=== PATIENT | female | born 1955 | race Caucasian/White ===

== ENCOUNTER 2017-03-27 23:31 | Emergency (ER) | payer MEDICARE, OTHER ==
[2017-03-28] MEDS ORDERED: NS 0.9% 1000 ML* 1,000 ML IV ONE (00:04)
[2017-03-28] MEDS ORDERED: Aspirin Low Dose CHEW TAB* 81 MG PO ONE (00:06)
[2017-03-28] MEDS ORDERED: Morphine INJ* 10 MG/ML 1 ML CARPUJECT IV ONE (00:07)
[2017-03-28] MEDS ORDERED: Ondansetron INJ* 2 MG/ML VIAL IV ONE (00:07)
[2017-03-28 00:42] LABS: INR 0.83 (0.77-1.02)
[2017-03-28 00:43] LABS: EGFR Non-African American 99.4 (>60)
[2017-03-28 00:55] LABS: ABS Basophils 0.1 10^3/ul (0-0.2); ABS Eosinophils 0.4 10^3/ul (0-0.6); ABS Lymphocytes 2.7 10^3/ul (1.0-4.8); ABS Monocytes 0.5 10^3/ul (0-0.8); ABS Neutrophils 2.8 10^3/ul (1.5-7.7); ABS Nucleated RBC 0 10^3/ul; Eosinophil % 5.5 % (0-6); Hematocrit 36 % (35-47); Hemoglobin 12.5 g/dl (12.0-16.0); Lymphocyte % 42.1 % (25-47); Mean Corpuscular HGB Conc 35 g/dl (31-36); Mean Corpuscular Hemoglobin 33 pg (27-31); Mean Corpuscular Volume 95 fL (80-97); Mean Platelet Volume 9 um3 (7.4-10.4); Nucleated Red Blood Cells % 0; Platelet Count 203 10^3/ul (150-450); Red Blood Count 3.77 10^6/ul (4.0-5.4); Red Cell Distribution Width 13 % (10.5-15); White Blood Count 6.5 10^3/ul (3.5-10.8)
[2017-03-28 04:24] VITALS: BP 106/65
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
--- NOTE | 2017-03-28 08:10 | RAD ---
HISTORY: Chest pain COMPARISONS: October 04, 2008 VIEWS: 1: frontal portable view of the chest at 12:17 AM FINDINGS: LINES AND TUBES: None. CARDIOMEDIASTINAL SILHOUETTE: The cardiomediastinal silhouette is normal for portable technique. PLEURA: The costophrenic angles are sharp. No pleural abnormalities are noted. LUNG PARENCHYMA: The lungs are clear. ABDOMEN: The upper abdomen is clear. There is no subphrenic gas. BONES AND SOFT TISSUES: No bone or soft tissue abnormalities are noted. IMPRESSION: NO ACTIVE CARDIOPULMONARY DISEASE.
== END 2017-03-28 05:29 | disposition home or self-care (01) ==
LOC: ED 23:31
DX: R07.89 Other chest pain (principal); Z88.3 Allergy status to other anti-infective agents; Z88.8 Allergy status to other drugs, medicaments and biological substances
CPT/HCPCS: 36415; 71045; 80053; 83735; 84484; 85025; 85379; 85610; 85730; 86140; 96361; 96374; 96375; 99284; A9270-GY; J2270; J2405

== ENCOUNTER 2017-08-24 16:42 | Emergency (ER) | payer MEDICARE, OTHER ==
[2017-08-24 17:32] LABS: ABS Basophils 0.1 10^3/ul (0-0.2); ABS Eosinophils 0.3 10^3/ul (0-0.6); ABS Lymphocytes 1.7 10^3/ul (1.0-4.8); ABS Monocytes 0.6 10^3/ul (0-0.8); ABS Neutrophils 4.2 10^3/ul (1.5-7.7); ABS Nucleated RBC 0 10^3/ul; Hematocrit 37 % (35-47); Hemoglobin 12.9 g/dl (12.0-16.0); Lymphocyte % 24.5 % (25-47); Mean Corpuscular HGB Conc 35 g/dl (31-36); Mean Corpuscular Hemoglobin 33 pg (27-31); Mean Corpuscular Volume 95 fL (80-97); Mean Platelet Volume 9.2 um3 (7.4-10.4); Nucleated Red Blood Cells % 0; Platelet Count 207 10^3/ul (150-450); Red Blood Count 3.91 10^6/ul (4.00-5.40); Red Cell Distribution Width 13 % (10.5-15); White Blood Count 6.9 10^3/ul (3.5-10.8)
[2017-08-24 17:48] LABS: EGFR Non-African American 90.7 (>60)
[2017-08-24] MEDS ORDERED: LORazepam TAB(*) 1 MG PO ONE (17:54)
[2017-08-24] MEDS ORDERED: Acetaminophen TAB* 325 MG PO ONE (17:54)
--- NOTE | 2017-08-24 17:56 | RAD ---
INDICATION: Traumatic fracture left wrist COMPARISON: Left forearm same date TECHNIQUE: AP, lateral, and oblique views were obtained. FINDINGS: There is nondisplaced transverse fracture through the distal radius. There is intra-articular extension. No other fractures are evident. There is soft tissue swelling. IMPRESSION: DISTAL RADIAL FRACTURE DESCRIBED.
--- NOTE | 2017-08-24 17:56 | RAD ---
INDICATION: Traumatic fracture left wrist COMPARISON: None TECHNIQUE: AP and lateral views were obtained. FINDINGS: There is a nondisplaced transverse fracture through the distal radius. There is associated soft tissue swelling. No additional findings.. IMPRESSION: UNDISPLACED DISTAL RADIAL FRACTURE.
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
[2017-08-24 19:27] LABS: Urine Appearance Cloudy; Urine Blood Negative (Negative); Urine Color Yellow; Urine Ketones Trace (Negative); Urine Protein Negative (Negative); Urine Specific Gravity 1.032 (1.010-1.030); Urine Urobilinogen Negative (Negative)
[2017-08-25] MEDS ORDERED: Ibuprofen TAB* 400 MG PO ONE (02:22)
[2017-08-25] MEDS ORDERED: hydrOXYzine HCL TAB* 50 MG PO ONE (02:22)
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
[2017-08-25] MEDS ORDERED: Ibuprofen TAB* 600 MG PO ONE (06:58)
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
[2017-08-25] MEDS ORDERED: Nicotine Inhaler* 10 MG AMP INH PRN (10:17)
[2017-08-25] MEDS ORDERED: Al Hydrox/Mg Hydrox/Simet LIQ* 30 ML UDC PO PRN (10:17)
[2017-08-25] MEDS ORDERED: Acetaminophen TAB* 325 MG PO PRN (10:17)
[2017-08-25] MEDS ORDERED: hydrOXYzine HCL TAB* 50 MG PO PRN (10:23)
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
[2017-08-25 15:58] VITALS: BP 105/64
--- NOTE | 2017-08-25 16:29 | PN ---
Subjective - Subjective Date of Service: 08/25/17 Service Type: 27845 Hosp care 35 min high complexity Subjective: Patient was seen by self for assessment of safety following self injurious behavior. Patient was observed in the E[facility]D [facility] and seen with the partner as insisted. Also patient's therapist was contacted for more collateral and her psychiatric history including suicidal thoughts, intent, plan and attempts. Patient was also discussed with treatment team, chart was reviewed. Patient has been resistant to inpatient treatment and wants to continue with her outpatient therapist. Patient is currently taking MILADYS-e as a supplement to help depression. Patient is oppose to psychotropic medications and that has caused side effects to her which she was unable to recall during evaluation. Patient as per therapist has history of making suicidal statement but no plan, intent or plan. Patient also reported very much similar that she was impulsive and out of anxiety and frustration hit the door that lead to fracture and came to get help at the hospital. Patient shows fair understanding of her condition and treatment needed for that, will f/u with her therapist outpatient. Patient's partner was very supportive as per patient. Patient behavior in the ED was in control with no self injurious and dangerous behavior. Patient was redirectable by the staff. Patient mood was anxious and was apprehensive about hospitalization to psychiatric unit. Patient reportedly has no history of inpatient psychiatric hospitalization. Patient has been reporting no suicidal or homicidal ideation and was remorseful about her impulsive act during anger which she kept on repeating and stated that she had no thoughts of suicide. Patient many reasons to live for and have supportive friends, family and provider. No psychotic symptoms of delusions or hallucinations. Patient reported benzo/opioid abuse in the past but not recent but reportedly smoked cannabis with a friend. Objective - Appearance Appearance: Healthy Appearing Dysmorphic Features: Yes Hygiene: Normal Grooming: Fairly Well Kept - Behavior Psychomotor Activities: Normal Exhibits Abnormal Movement: No - Attitude and Relatedness Attitude and Relatedness: Cooperative - most of the time with an atittude Eye Contact: Fair - Speech Quality: Unpressured Latencies: Normal Quantity: Appropriate - Mood Patient's Decription of Mood: "Upset" - Affect Observed Affect: Fair Affect Consistent with: Dysphoria - minimal - Thought Process Patient's Thought Process: Coherent Thought Content: No Passive Wish, No Suicidal Planning, No Homicidal Ideation, No Paranoid Ideation - Sensorium Experiencing Hallucinations: No, Sensorium is Clear Type of Hallucinations: Visual: No, Auditory: No, Command: No - Level of Consciousness Level of Consciousness: Alert Orientation: Yes Intact, Yes Orientated to Time, Yes Orientated to Place, Yes Orientated to Person - Impulse Control Impulse Control: Intact - during evaluation - Insight and Judgement Insight and Judgement: Fair Assessment - Assessment Inpatient DSM-V Dx: F33.8 Clinical Impression: Patient with history of depression, anxiety, Benzo/Opioid abuse in remission, currently presented to ED after a self injurious behavior following an impulsive /angry situation with her psychosocial stresses. Patient has history of verbalizing suciidal statement but had no intent, plan or attempts. Patient feels supported by her provider, friends and family. Patient willing to f/u outpatient but not agreeing to inpatient care. Plan - Plan Treatment Plan: Name: LUCIA OLSON Birthdate: 1955 [id number] Patient was offered inpatient hospitalization, and did nto exhibit any dangerous behavior to self or others during observation in Flex. Patient was at two instances by the provider, collateral were obtained to assure safety upon discharge. Patient was willing to f/u outpatient with therapist and receive outpatient care for her orthopedic issues as well. Hence afetr discussing with team patient was discharged as she did not meet the criteria fro inpatient psychiatric hospitalization. Medications: Current Medications Acetaminophen (Tylenol Tab*) 650 mg PO Q6H PRN PRN Reason: for pain; or Temp >101 F Al Hydrox/Mg Hydrox/Simethicone (Maalox Plus*) 30 ml PO Q4H PRN PRN Reason: INDIGESTION Hydroxyzine HCl (Atarax Tab*) 50 mg PO Q6H PRN PRN Reason: ANXIETY Nicotine (Nicotine Inhaler*) 10 mg INH Q2H PRN PRN Reason: CRAVING Pharmacy Profile Note (Nicotine Patch Removal Note*) 1 note PATCH OFF [address]
[2017-08-25] MEDS ORDERED: Nicotine Patch Removal NOTE PATCH OFF SCH (21:00)
== END 2017-08-25 15:38 | disposition home or self-care (01) ==
LOC: ED 16:42
DX: S52.572A Other intraarticular fracture of lower end of left radius, initial encounter for closed fracture (principal); W22.8XXA Striking against or struck by other objects, initial encounter; Y92.009 Unspecified place in unspecified non-institutional (private) residence as the place of occurrence of the external cause; F39 Unspecified mood [affective] disorder; F33.8 Other recurrent depressive disorders; F43.9 Reaction to severe stress, unspecified; F41.9 Anxiety disorder, unspecified; F11.11 Opioid abuse, in remission; Z88.3 Allergy status to other anti-infective agents; Z88.8 Allergy status to other drugs, medicaments and biological substances
CPT/HCPCS: 25605; 36415; 80053; 80307; 80320; 80329; 81003; 84443; 85025; 93005; 99284; A9270-GY; G0480